=== PATIENT | female | born 1990 | race Caucasian/White ===

== ENCOUNTER 2016-07-18 12:34 | Emergency (ER) | payer MEDICAID ==
[2016-07-18 12:42] VITALS: O2SAT 97
[2016-07-18] MEDS ORDERED: NS 1,000 ML IV ONE (13:24)
[2016-07-18 13:38] LABS: % IMMATURE GRANULYOCYTES 0.4 % (0.0-1.1); ABSOLUTE IMMATURE GRANULOCYTES 0.03 10^3/uL (0.00-0.10); ADD DIFF? NO; ADD MORPH? NO; ADD SCAN? NO; ATYPICAL LYMPHOCYTE FLAG 0 (0-99); FRAGMENT RBC FLAG 0 (0-99); HEMATOCRIT 33.8 % (38.0-47.0); HEMOGLOBIN 11.6 g/dL (12.6-16.3); LEFT SHIFT FLG 0 (0-99); LIPEMIA HEMOLYSIS FLAG 90 (0-99); MEAN CELL HEMOGLOBIN CONCENTR. 34.3 g/dL (32.4-36.7); MEAN PLATELET VOLUME 10.2 fL (8.7-11.7); PLATELET CLUMPS FLAG 10 (0-99); PLATELET COUNT 221 10^3/uL (150-400); RED BLOOD CELL COUNT 3.52 10^6/uL (4.18-5.33); RED CELL DISTRIBUTION WIDTH 11.6 % (11.5-15.2)
[2016-07-18 13:55] LABS: ANION GAP 13 mEq/L (8-16); CALCIUM 9.1 mg/dL (8.5-10.4); CARBON DIOXIDE 22 mEq/l (22-31); CHLORIDE 104 mEq/L (97-110); CREATININE 0.4 mg/dL (0.6-1.0); GLOMERULAR FILTRATION RATE > 60; GLUCOSE 81 mg/dL (70-100); POTASSIUM 3.9 mEq/L (3.5-5.2); SODIUM 139 mEq/L (134-144)
[2016-07-18 15:11] LABS: COLOR YELLOW; LEUKOCYTE ESTERASE,URINE NEGATIVE (NEGATIVE); NITRITE,URINE NEGATIVE (NEGATIVE)
--- NOTE | 2016-07-18 15:27 | UCPHY ---
H & P Patient Type: Established Chief Complaint Nursing Narrative: C/O LLQ pain x 3 day - thinks she is Aprx 2 month preg - has not had OB visit Time Seen by Provider: 07/18/16 13:23 HPI/ROS: This patient had a positive home test with last menstrual. Approximately 2 months ago. She developed some crampy lower abdominal pain today left lower quadrant and suprapubic describes achy in nature waxing waning in intensity occasionally sharp with no clear exacerbating factors. She has not had this discomfort before and came in for further evaluation. ROS: No high fevers or chills. She reports no HEENT complaints. Pulmonary: No cough cardiovascular: No lightheadedness. GI: Normal bowel movements. No vomiting. : No vaginal bleeding. No urinary symptoms. 10 point ROS is otherwise negative. Source: Patient Exam Limitations: No limitations - Personal History LMP (Females 10-55): Current Tetanus Diphtheria and Acellular Pertussis (TDAP): Yes Tetanus Vaccine Date: within 10 years - Medical/Surgical History PMH: Positive home test 1 week ago Endometriosis Hx Asthma: No Hx Chronic Respiratory Disease: No Hx Diabetes: No Hx Cardiac Disease: No Hx Renal Disease: No Hx Cirrhosis: No Hx Alcoholism: No Hx HIV/AIDS: No Hx Splenectomy or Spleen Trauma: No Other PMH: migraines, vit D/ iron deficiency, fainting, intermittent numbness in extremities. endometrosis - Family History Significant Family History: No pertinent family hx - Social History Smoking Status: Former smoker (The patient quit smoking 1 week ago) Alcohol Use: Occasionally Drug Use: None - Physical Exam Exam: General Appearance: Alert, no distress. Eyes: Pupils equal and round no pallor or injection. ENT, Mouth: Mucous membranes moist. Respiratory: There are no retractions, lungs are clear to auscultation. Cardiovascular: Regular rate and rhythm. Gastrointestinal: Normoactive soft, mild left lower quadrant tenderness. No guarding or rebound. Ears, nontender consistent with dates. Back: No CVA tenderness Neurological: Alert with no focal deficits Skin: Warm and dry, no rashes. Musculoskeletal: Neck is supple nontender. Extremities are symmetrical, full range of motion. Psychiatric: Mood and affect normal DIFFERENTIAL DIAGNOSIS: After history and physical exam differential diagnosis was considered for ectopic , intrauterine , constipation, UTI Constitutional: Initial Vital Signs Temperature (C) 36.6 C 07/18/16 12:39 Heart Rate 106 H 07/18/16 12:39 Respiratory Rate 18 07/18/16 12:39 Blood Pressure 110/62 07/18/16 12:39 O2 Sat (%) 97 07/18/16 12:39 O2 Delivery Mode Room Air Allergies/Adverse Reactions: No Known Allergies Allergy (Verified 01/16/16 14:59) Medical Decision Making - Diagnostics Imaging: Ob ultrasound reveals a viable IUP at 9 weeks 5 days heart rate of 167 no subchorionic hemorrhage or other abnormal findings per our radiologist-Dr. Carlin. The estimated date of delivery is 02/15/2017 ED Course/Re-evaluation: I counseled patient regarding her ultrasound findings. His suspect she may have mild constipation contributing to her symptoms. Urinalysis is unremarkable and her labs are otherwise normal. Will treat her pain with Tylenol a follow up with OBGYN for 20 week ultrasound. - Data Points Laboratory Results: Laboratory Results 07/18/16 13:30 07/18/16 13:30 07/18/16 07/18/16 07/18/16 14:45 13:30 13:30 WBC 8.14 10^3/uL 10^3/uL (3.80-9.50) RBC 3.52 10^6/uL L 10^6/uL (4.18-5.33) Hgb 11.6 g/dL L g/dL (12.6-16.3) Hct 33.8 % L % (38.0-47.0) MCV 96.0 fL fL (81.5-99.8) MCH 33.0 pg pg (27.9-34.1) MCHC 34.3 g/dL g/dL (32.4-36.7) RDW 11.6 % % (11.5-15.2) Plt Count 221 10^3/uL 10^3/uL (150-400) MPV 10.2 fL fL (8.7-11.7) Neut % (Auto) 75.8 % H % (39.3-74.2) Lymph % (Auto) 17.3 % % (15.0-45.0) Todd % (Auto) 5.3 % % (4.5-13.0) Eos % (Auto) 0.7 % % (0.6-7.6) Baso % (Auto) 0.5 % % (0.3-1.7) Nucleat RBC Rel Count 0.0 % % (0.0-0.2) Absolute Neuts (auto) 6.17 10^3/uL 10^3/uL (1.70-6.50) Absolute Lymphs (auto) 1.41 10^3/uL 10^3/uL (1.00-3.00) Absolute Monos (auto) 0.43 10^3/uL 10^3/uL (0.30-0.80) Absolute Eos (auto) 0.06 10^3/uL 10^3/uL (0.03-0.40) Absolute Basos (auto) 0.04 10^3/uL 10^3/uL (0.02-0.10) Absolute Nucleated RBC 0.00 10^3/uL 10^3/uL (0-0.01) Immature Gran % 0.4 % % (0.0-1.1) Immature Gran # 0.03 10^3/uL 10^3/uL (0.00-0.10) Sodium 139 mEq/L mEq/L (134-144) Potassium 3.9 mEq/L mEq/L (3.5-5.2) Chloride 104 mEq/L mEq/L (97-110) Carbon Dioxide 22 mEq/l mEq/l (22-31) Anion Gap 13 mEq/L mEq/L (8-16) BUN 7 mg/dL mg/dL (7-23) Creatinine 0.4 mg/dL L mg/dL (0.6-1.0) Estimated GFR > 60 Glucose 81 mg/dL mg/dL (70-100) Calcium 9.1 mg/dL mg/dL (8.5-10.4) Beta HCG, Quant 502617.00 mIU/mL H mIU/mL (0-4.83) Urine Color YELLOW Urine Appearance CLEAR Urine pH 7.0 (5.0-7.5) Ur Specific [place] 1.010 (1.002-1.030) Urine Protein NEGATIVE (NEGATIVE) Urine Ketones NEGATIVE (NEGATIVE) Urine Blood NEGATIVE (NEGATIVE) Urine Nitrate NEGATIVE (NEGATIVE) Urine Bilirubin NEGATIVE (NEGATIVE) Urine Urobilinogen 0.2 EU EU (0.2-1.0) Ur Leukocyte Esterase NEGATIVE (NEGATIVE) Ur Culture Indicated? NOT INDICATED (NI) Urine Glucose NEGATIVE (NEGATIVE) Medications Given: Discontinued Medications Sodium Chloride (Ns) 1,000 mls @ 0 mls/hr IV ONCE ONE PRN Reason: Wide Open Stop: 07/18/16 13:25 Last Admin: 07/18/16 13:37 Dose: 1,000 mls Departure - Departure Disposition: Home, Routine, Self-Care Clinical Impression: First trimester , Lower abdominal pain Condition: Good Instructions: (ED), Acute Abdominal Pain (ED) Additional Instructions: Diagnosis: 1st trimester 2. Lower abdominal pain Your ultrasound reveals a normal intrauterine with size consistent with 9 weeks, 5 days with an estimated delivery date of February 15, 2017. Your hormone is an appropriate level for this size of fetus. Plan: Tylenol for pain if needed Drink plenty fluids Stool softener if he developed any constipation Call Dr. Ortega-SAVANNA physician to arrange follow-up appointment to have a repeat ultrasound at 20 weeks. Go to the emergency department for any significant worsening of her symptoms despite the plan. Referrals: NONE *PRIMARY CARE P,. [Primary Care Provider] - As per Instructions Mirta Ortega DO [Doctor of Osteopathy] - As per Instructions - PQRS PQRS Measurement: NA
[2016-07-18 15:50] VITALS: BP 117/68; PULSE 67; RESP 16; TEMP 98.6
== END 2016-07-18 15:40 | disposition home or self-care (01) ==
LOC: CED 12:34
DX: Z34.01 Encounter for supervision of normal first pregnancy, first trimester (principal); R10.9 Unspecified abdominal pain; N80.9 Endometriosis, unspecified; Z3A.09 9 weeks gestation of pregnancy; Z87.891 Personal history of nicotine dependence
CPT/HCPCS: 80048-PO; 81003-PO; 84702-PO; 85025-PO; 99215-PO; G0463-PO

== ENCOUNTER 2016-07-27 12:08 | Emergency (ER) | payer MEDICAID ==
[2016-07-27 12:20] VITALS: RESP 16; O2SAT 96
[2016-07-27 12:43] LABS: COLOR YELLOW; LEUKOCYTE ESTERASE,URINE TRACE (NEGATIVE); NITRITE,URINE NEGATIVE (NEGATIVE)
[2016-07-27 12:54] LABS: RBC,URINE 0-1 /hpf (0-3)
[2016-07-27 12:55] LABS: BACTERIA 2+ /hpf (NONE SEEN); MUCUS 2+ /lpf (NONE-1+)
--- NOTE | 2016-07-27 13:18 | UCPHY ---
H & P Time Seen by Provider: 07/27/16 12:17 Smoking Status: Former smoker Constitutional: Initial Vital Signs Temperature (C) 37 C 07/27/16 12:18 Heart Rate 98 07/27/16 12:18 Respiratory Rate 16 07/27/16 12:18 Blood Pressure 127/83 H 07/27/16 12:18 O2 Sat (%) 96 07/27/16 12:18 O2 Delivery Mode Room Air Allergies/Adverse Reactions: No Known Allergies Allergy (Verified 01/16/16 14:59) Home Medications: Medication Instructions Recorded Clotrimazole 1% [[id number]] 7 betty VG DAILY #1 cream 07/27/16 Metronidazole 2,000 mg PO ONCE #4 tablet 07/27/16 07/27/16 Medical Decision Making - Data Points Laboratory Results: 07/27/16 07/27/16 07/27/16 12:45 12:45 12:30 Urine Color YELLOW Urine Appearance CLEAR Urine pH 6.0 (5.0-7.5) Ur Specific [place] 1.025 (1.002-1.030) Urine Protein NEGATIVE (NEGATIVE) Urine Ketones NEGATIVE (NEGATIVE) Urine Blood NEGATIVE (NEGATIVE) Urine Nitrate NEGATIVE (NEGATIVE) Urine Bilirubin NEGATIVE (NEGATIVE) Urine Urobilinogen 0.2 EU EU (0.2-1.0) Ur Leukocyte Esterase TRACE H (NEGATIVE) Urine RBC 0-1 /hpf /hpf (0-3) Urine WBC 10-15 /hpf H /hpf (0-3) Ur Epithelial Cells 3+ /lpf H /lpf (NONE-1+) Urine Bacteria 2+ /hpf H /hpf (NONE SEEN) Urine Mucus 2+ /lpf H /lpf (NONE-1+) Ur Culture Indicated? INDICATED H (NI) Urine Glucose NEGATIVE (NEGATIVE) Trichomonas (Wet Prep) NO CLUE CELLS SEEN C.trachomatis RNA (TMA) Pending N.gonorrhoeae RNA (TMA) Pending Departure - Departure Disposition: Home, Routine, Self-Care Clinical Impression: Vaginitis, Trichomoniasis Condition: Good Instructions: Trichomoniasis (ED), Vulvovaginal Candidiasis (ED) Referrals: NONE *PRIMARY CARE P,. [Primary Care Provider] - As per Instructions Prescriptions: Clotrimazole 1% [[id number]] 7 betty VG DAILY #1 cream Metronidazole 2,000 mg PO ONCE #4 tablet - PQRS PQRS Measurement: na
[2016-07-27 13:39] VITALS: BP 126/88; PULSE 92; TEMP 97.9
[2016-07-28 13:25] LABS: CHLAMYDIA AMPLIFICATION GENPRB NEGATIVE (NEGATIVE)
== END 2016-07-27 13:39 | disposition home or self-care (01) ==
LOC: CED 12:08
DX: B37.3 Candidiasis of vulva and vagina (principal)
CPT/HCPCS: 81003-PO; 81015-PO; 87210-PO; G0463-PO

== ENCOUNTER → 2017-07-04 | Outpatient (CLI) | payer MEDICAID | LOC: CIMAGING 12:32 | PROVIDERS: ATTEND Family Medicine | DX: R59.1 Generalized enlarged lymph nodes (principal); F17.200 Nicotine dependence, unspecified, uncomplicated; Z80.1 Family history of malignant neoplasm of trachea, bronchus and lung | CPT/HCPCS: 76536-PO ==

== ENCOUNTER 2017-11-08 01:23 | Emergency (ER) | payer MEDICAID ==
[2017-11-08 01:34] VITALS: BP 141/86
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
== END 2017-11-08 02:45 | disposition home or self-care (01) ==
LOC: CED 01:23
DX: S32.2XXA Fracture of coccyx, initial encounter for closed fracture (principal); Z87.891 Personal history of nicotine dependence; W18.40XA Slipping, tripping and stumbling without falling, unspecified, initial encounter
CPT/HCPCS: 72220-PO

== ENCOUNTER → 2017-11-09 | Outpatient (CLI) | payer MEDICAID | LOC: CIMAGING 16:02 | PROVIDERS: ATTEND Family Medicine | DX: M54.6 Pain in thoracic spine (principal); W19.XXXA Unspecified fall, initial encounter | CPT/HCPCS: 72070-PO ==

== ENCOUNTER 2017-11-23 09:17 | Emergency (ER) | payer MEDICAID ==
[2017-11-23] MEDS ORDERED: NS 1,000 ML IV ONE (09:58)
[2017-11-23] MEDS ORDERED: ONDANSETRON 4 MG/2 ML VIAL IVP ONE (09:58)
[2017-11-23] MEDS ORDERED: PANTOPRAZOLE SODIUM 40 MG TAB PO ONE (09:59)
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
[2017-11-23 11:20] VITALS: BP 114/68
== END 2017-11-23 11:25 | disposition home or self-care (01) ==
LOC: CED 09:17
DX: K29.00 Acute gastritis without bleeding (principal); M54.5 Low back pain; G89.29 Other chronic pain; F17.200 Nicotine dependence, unspecified, uncomplicated; E86.9 Volume depletion, unspecified
CPT/HCPCS: 80053-PO; 96374; J2405

== ENCOUNTER 2017-12-16 | Emergency (ER) | payer MEDICAID | END 2017-12-16 12:09 | disposition home or self-care (01) | DX: N63.10 Unspecified lump in the right breast, unspecified quadrant (principal); M54.5 Low back pain; R30.0 Dysuria; F17.200 Nicotine dependence, unspecified, uncomplicated ==

== ENCOUNTER 2018-01-06 10:26 | Emergency (ER) | payer MEDICAID ==
--- NOTE | 2018-01-06 10:43 | EDPHY ---
H & P Time Seen by Provider: 01/06/18 10:38 HPI/ROS: Chief complaint. Vaginal bleeding HPI. 27-year-old female presents to the emergency department with complaint of 19 days of vaginal bleeding. It began as a normal menstrual. Though has continued. She describes as heavy you're than a normal menstrual period. She has a history of abnormal menstrual periods. She has a history of endometriosis. She denies any urinary symptoms or fever. She has low bilateral abdominal cramping. She was seen about a month ago for breast lump and is scheduled next week to have ultrasound of her breast for evaluation of her lump. ROS Constitutional. no fever/chills, no weakness Eyes. no problems with vision ENT. no sore throat, no nasal drainage Cardiovascular. no chest pain Respiratory. no shortness of breath, no cough Abdominal. Crampy low abdominal pain and vaginal bleeding . no problems urinating MS. no calf pain/swelling, no neck/back pain, no joint pain Skin. no rash Lymph. no swollen glands Neuro. no headache, no dizziness, no difficulty walking or with speech Past Medical/Surgical History: Chronic back pain, migraines, endometriosis, gastritis. No abdominal surgeries Social History: Single, daily smoker, no alcohol Smoking Status: Heavy smoker Physical Exam: General Appearance: Alert well-developed female mild distress vital signs are stable Eyes: Pupils equal and round no pallor or injection. ENT, Mouth: Mucous membranes are moist. Respiratory: There are no retractions, lungs are clear to auscultation. Cardiovascular: Regular rate and rhythm. Gastrointestinal: Abdomen soft with mild bilateral adnexal pain. No masses. Normal bowel sounds Neurological: Awake and alert, sensory and motor exams grossly normal. Skin: Warm and dry, no rashes. Musculoskeletal: Neck is supple nontender. Extremities symmetrical, full range of motion. Psychiatric: Patient is oriented X 3, there is no agitation. Constitutional: Initial Vital Signs Temperature (C) 36.9 C 01/06/18 10:30 Heart Rate 96 01/06/18 10:30 Respiratory Rate 18 01/06/18 10:30 Blood Pressure 129/87 H 01/06/18 10:30 O2 Sat (%) 96 01/06/18 10:30 O2 Delivery Mode Room Air Allergies/Adverse Reactions: papaya Allergy (Verified 01/06/18 10:29) Pt reports Hives and throat swelling Home Medications: Medication Instructions Recorded Tranexamic Acid [Lysteda] 650 mg PO TID #10 tablet 01/06/18 Medical Decision Making - Diagnostics Imaging Results: Imaging Impressions Pelvic/Renal Ultrasound 01/06/18 10:50 Impression: 1. Thin endometrial lining containing minimal blood products. No uterine leiomyoma or explanation for bleeding. 2. Small benign hemorrhagic cyst left ovary. No ovarian torsion. Findings discussed with Emergency Department physician, Ward Staton, on 2017 at 12:23 p.m. Ultrasound of the pelvis reviewed by me and discussed with Dr. Lentz reveals the small left ovarian hemorrhagic cyst. Uterine lining is about 5 mm and normal. No evidence for torsion Procedures: IV normal saline ED Course/Re-evaluation: Urine test is negative. Urine dip shows blood and 1+ leukocytes. The urine is sent for culture and sensitivity. Hematocrit is 42 which is comparable to previous blood test. Re-evaluation at 12:30 p.m.. Patient and I discussed laboratory evaluation, imaging studies. We discussed treatment plan including criteria for return importance of follow-up and further evaluation. She expresses understanding and agreement. Differential Diagnosis: I considered , ectopic , complications of endometriosis, urinary tract infection. It appears this is dysfunctional uterine bleeding of unclear etiology - Data Points Laboratory Results: 01/06/18 11:29 POC Hgb 14.3 gm/dL gm/dL (12.6-16.3) POC Hct 42 % % (38-47) POC Sodium 141 mEq/L mEq/L (135-145) POC Potassium 3.9 mEq/L mEq/L (3.3-5.0) POC Chloride 104 mEq/L mEq/L (97-110) POC BUN 7 mg/dL mg/dL (7-23) POC Creatinine 0.6 mg/dL mg/dL (0.6-1.0) POC Glucose 82 mg/dL mg/dL (70-100) Point of Care Test Results: Chemistry 01/06/18 11:29 POC Sodium 141 mEq/L mEq/L (135-145) POC Potassium 3.9 mEq/L mEq/L (3.3-5.0) POC Chloride 104 mEq/L mEq/L (97-110) POC BUN 7 mg/dL mg/dL (7-23) POC Creatinine 0.6 mg/dL mg/dL (0.6-1.0) POC Glucose 82 mg/dL mg/dL (70-100) ISTAT H&H 01/06/18 11:29 POC Hgb 14.3 gm/dL gm/dL (12.6-16.3) POC Hct 42 % % (38-47) Urine Collection Date 01/06/18 Collection Time 10:55 HCG Results Negative Urine Dip Collection Date 01/06/18 Collection Time 10:55 Specific [place] (1.002-1.030) 1.020 PH (5.0-7.5) 6.5 Leukocytes (Negative) 1+ Nitrites (Negative) Negative Protein (Negative) Negative Glucose (Negative) Negative Ketones (Negative) Negative Urobilnogen (0.2-1.0 EU) 0.2 Bilirubin (Negative) Negative Blood (Negative) 2+ Departure - Departure Disposition: Home, Routine, Self-Care Clinical Impression: Dysfunctional uterine bleeding Condition: Good Instructions: Dysfunctional Uterine Bleeding (ED) Additional Instructions: Lysteda one pill three times daily for three days to stop bleeing. Return for worsening bleeding. Follow-up with tape recording machine operator for continuing bleeding. Referrals: Bakari Walsh DO [Primary Care Provider] - 2-3 days, if not improved Angle Suarez DO [Doctor of Osteopathy] - 3-4 days, if not improved Prescriptions: Tranexamic Acid [Lysteda] 650 mg PO TID #10 tablet
[2018-01-06 12:50] VITALS: BP 117/77
== END 2018-01-06 12:48 | disposition home or self-care (01) ==
LOC: CED 10:26
DX: N93.8 Other specified abnormal uterine and vaginal bleeding (principal); F17.210 Nicotine dependence, cigarettes, uncomplicated; N83.202 Unspecified ovarian cyst, left side
CPT/HCPCS: 76856-PO; 82435-PO; 82565-PO; 82947-PO; 84132-PO; 84295-PO; 84520-PO; 85014-PO

== ENCOUNTER → 2018-01-09 | Outpatient (CLI) | payer MEDICAID | LOC: CIMAGING 12:50 | PROVIDERS: ATTEND Family Medicine | DX: N64.4 Mastodynia (principal) | CPT/HCPCS: 76641-PO ==

== ENCOUNTER → 2018-01-31 | Outpatient (CLI) | payer MEDICAID | LOC: CIMAGING 12:50 | PROVIDERS: ATTEND Family Medicine | DX: N63.10 Unspecified lump in the right breast, unspecified quadrant (principal); Z80.9 Family history of malignant neoplasm, unspecified; R63.4 Abnormal weight loss ==

== ENCOUNTER 2018-03-12 14:30 | Emergency (ER) | payer MEDICAID ==
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
[2018-03-12] MEDS ORDERED: ACETAMINOPHEN 500 MG TAB PO ONE (15:05)
[2018-03-12 15:54] VITALS: BP 117/79
== END 2018-03-12 15:52 | disposition home or self-care (01) ==
LOC: CED 14:30
DX: S43.431A Superior glenoid labrum lesion of right shoulder, initial encounter (principal)
CPT/HCPCS: 73030-PO

== ENCOUNTER → 2018-03-15 | Outpatient (CLI) | payer MEDICAID | LOC: CIMAGING 16:34 | PROVIDERS: ATTEND Family Medicine | DX: S30.0XXD Contusion of lower back and pelvis, subsequent encounter (principal); M53.3 Sacrococcygeal disorders, not elsewhere classified | CPT/HCPCS: 72220-PO ==

== ENCOUNTER 2018-04-15 15:14 | Emergency (ER) | payer MEDICAID ==
[2018-04-15] MEDS ORDERED: ONDANSETRON 4 MG/2 ML VIAL ONE (16:06)
[2018-04-15] MEDS ORDERED: ONDANSETRON 4 MG/2 ML VIAL IVP ONE (16:09)
[2018-04-15] MEDS ORDERED: NS 1,000 ML IV ONE (16:13)
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
[2018-04-15] MEDS ORDERED: ONDANSETRON 4MG PREPACK#2 BTL TAKEHOME ONE (17:32)
[2018-04-15 17:52] VITALS: BP 114/58
== END 2018-04-15 17:50 | disposition home or self-care (01) ==
LOC: CED 15:14
DX: K52.9 Noninfective gastroenteritis and colitis, unspecified (principal)
CPT/HCPCS: 80053-PO; 82435-PO; 82565-PO; 82947-PO; 83605-PO; 84132-PO; 84295-PO; 84520-PO; 85014-PO; 96374; J2405

== ENCOUNTER 2018-05-08 20:24 | Emergency (ER) | payer MEDICAID ==
[2018-05-08 20:34] VITALS: BP 154/62
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
== END 2018-05-08 21:20 | disposition home or self-care (01) ==
LOC: CED 20:24
DX: M25.551 Pain in right hip (principal); F17.200 Nicotine dependence, unspecified, uncomplicated
CPT/HCPCS: 73502-PO; 99283-ER